=== PATIENT | male | born 1985 | race Caucasian/White ===

== ENCOUNTER 2021-09-12 23:12 | Emergency (ER) | payer SELFPAY ==
[~2021-09-12] VITALS: Ht 172.7 cm; Wt 67.9 kg
--- NOTE | 2021-09-12 23:38 | PHYS DOC ---
General Adult EDM: Chief Complaint: jittery HPI: HPI: 36-year-old male presents via EMS because he is jittery. The patient did not call EMS. He is not sure what happened. He was sleeping and the EMS arrived. He lives with his uncle and its possible his uncle called EMS. The patient was drinking beer just prior to coming to the hospital. He states that he does feel shaky. He drinks 5 or 6 beers a day mostly in the evening and at night. He had a recent DUI. He has no other specific symptoms at this time. Review of Systems: Review of Systems: Constitutional: Denies fever or chills Eyes: Denies change in visual acuity HENT: Denies nasal congestion or sore throat Respiratory: Denies cough or shortness of breath Cardiovascular: Denies chest pain or edema GI: Denies abdominal pain, nausea, vomiting, bloody stools or diarrhea : Denies dysuria Musculoskeletal: Denies back pain or joint pain Integument: Denies rash Neurologic: Jittery. Denies headache, focal weakness or sensory changes Endocrine: Denies polyuria or polydipsia Lymphatic: Denies swollen glands Psychiatric: anxiety Current Medications: Current Meds: Current Medications Medications (Trade) Dose Ordered Sig/Gage Start Time Stop Time Status Last Admin Dose Admin Sodium Chloride 1,000 ml @ 1,000 mls/hr 1X ONCE 09/12/21 23:45 09/13/21 00:44 UNV Physical Exam: PE: Constitutional: Well developed, well nourished, no acute distress, disheveled, unkept non-toxic appearance. [] HENT: Normocephalic, atraumatic, bilateral external ears normal, oropharynx moist, no oral exudates, nose normal. [] Eyes: PERRLA, EOMI, conjunctiva normal, no discharge. [] Neck: Normal range of motion, no tenderness, supple, no stridor. [] Cardiovascular: Heart rate regular rhythm, no murmur [] Lungs & Thorax: Bilateral breath sounds clear to auscultation [] Abdomen: Bowel sounds normal, soft, no tenderness, no masses, no pulsatile masses. [] Skin: Multiple areas of dry skin of the face and extremities. [] Back: No tenderness, no CVA tenderness. [] Extremities: No tenderness, no cyanosis, no clubbing, ROM intact, no edema. [] Neurologic: Alert and oriented X 3, normal motor function, normal sensory func tion, no focal deficits noted. [] Psychologic: Affect normal, judgement normal, mood anxious. [] EKG: EKG: [] Radiology/Procedures: Radiology/Procedures: [] Heart Score: C/O Chest Pain: N/A Risk Factors: Risk Factors: DM, Current or recent (<one month) smoker, HTN, HLP, family history of CAD, obesity. Risk Scores: Score 0 - 3: 2.5% MACE over next 6 weeks - Discharge Home Score 4 - 6: 20.3% MACE over next 6 weeks - Admit for Clinical Observation Score 7 - 10: 72.7% MACE over next 6 weeks - Early Invasive Strategies Course & Med Decision Making: Course & Med Decision Making Pertinent Labs and Imaging studies reviewed. (See chart for details) The patient has elevated liver enzymes and elevated bilirubin. He also has an elevated anion gap. I suspect all of these are related to his alcohol use. We have given a liter of normal saline. I have advised that he stop drinking alcohol. He does not absolutely need to be admitted to the hospital at this time. He is stable for discharge. [] Dragon Disclaimer: Dragon Disclaimer: This electronic medical record was generated, in whole or in part, using a voice recognition dictation system. Departure Departure: Impression: Primary Impression: Elevated liver enzymes Additional Impression: Alcoholism Disposition: HOME / SELF CARE / HOMELESS Condition: STABLE Patient Instructions: Alcohol and Drug Addiction, Finding Treatment, Alcoholic Liver Disease, [id number] ALFRED CLEMENT DO Sep 12, 2021 23:38
[2021-09-13] LABS: BASO % 0 % (0-3); EOS % 0 % (0-3); HEMOGLOBIN 14.2 g/dL (13.0-17.5); LYMPH # 0.5 x10^3/uL (1.0-4.8); LYMPH % 9 % (24-48); MEAN CORPUSCULAR HEMOGLOBIN 34 pg (25-35); MEAN CORPUSCULAR HGB CONC 34 g/dL (31-37); MEAN CORPUSCULAR VOLUME 101 fL (79-100); MONO # 0.6 x10^3/uL (0.0-1.1); MONO % 12 % (0-9); NEUT % 79 % (31-73); PLATELET COUNT 75 x10^3/uL (140-400); RED BLOOD COUNT 4.15 x10^6/uL (4.30-5.70); RED CELL DISTRIBUTION WIDTH 13.8 % (11.5-14.5); WHITE BLOOD COUNT 5.1 x10^3/uL (4.0-11.0)
[2021-09-13 00:16] LABS: GFR 83.6; POTASSIUM 3.8 mmol/L (3.5-5.1)
[2021-09-13 00:22] LABS: ALBUMIN 3.9 g/dL (3.4-5.0); TOTAL BILIRUBIN 2.7 mg/dL (0.2-1.0); TOTAL PROTEIN 7.8 g/dL (6.4-8.2)
[2021-09-13] MEDS ORDERED: IV NORMAL SALINE 1,000ML 1,000 ML IV ONE (00:30)
[2021-09-13 01:45] VITALS: BP 136/88
[2021-09-13] MEDS ORDERED: LORazepam 1 MG TABLET PO ONE (02:00)
== END 2021-09-13 01:45 | disposition home or self-care (01) ==
LOC: ER 23:12
DX: R74.8 Abnormal levels of other serum enzymes (principal); F10.20 Alcohol dependence, uncomplicated; Y90.0 Blood alcohol level of less than 20 mg/100 ml
CPT/HCPCS: 36415; 80053; 85025; 96360; 99283; G0480; J7030